=== PATIENT | female | born 1930 | race Caucasian/White ===

== ENCOUNTER 2017-02-28 18:16 | Inpatient (IN) | payer MEDICARE, BC ==
[~2017-02-28] VITALS: Ht 162.6 cm; Wt 48.3 kg
[2017-02-28] VITALS (126 sets, daily range): BP systolic 150–173; BP diastolic 1–74; PULSE 77–92; TEMP 97.2–99.6; O2SAT 92–100
[~2017-02-28 18:16] MED LIST: ASPIRIN 81M81 MG/TA2 PO; CENTRUM SILVER1 CTB PO; DYAZIDE 25 MG-51 CAP PO; FISH OIL1000 MG PO; LEVAQUIN 750MG750 M1 PO; MAXZIDE-25MG TA1 TAB PO; NORVASC2.5 MG PO; PREMARIN VAG42.5 GM VG; SYNTHROID 0.0.025 MG PO; TRIAMTERENE W/H1 CAP PO; hytrin PO
[2017-02-28 19:07] LABS: BASO % 0.4 % (0.0-2.0); EOS # 0.1 (0.0-0.7); EOS % 1.1 % (0-4.0); GRAN # 7.6 (1.4-6.5); GRAN % 78.1 % (42.2-75.2); LYMPH # 1.1 (1.2-3.4); LYMPH % 11.1 % (20.0-51.0); MEAN CELL VOLUME 92 fl (80.0-100.0); MEAN CORPUSCULAR HGB CONC 31 g/dl (33.0-37.0); MEAN PLATELET VOLUME 11.4 fl (7.4-10.4); MONO # 0.9 (0.1-0.6); PLATELET COUNT 311 K/mm3 (130-400); RED BLOOD COUNT 2.37 M/mm3 (4.10-5.30); REDCELL DISTRIBUTION WIDTH-CV 14.6 % (11.5-14.5); WHITE BLOOD COUNT 9.8 K/mm3 (4.8-10.8)
[2017-02-28 19:11] LABS: HEMATOCRIT 21.7 % (37.0-47.0); HEMOGLOBIN 6.7 g/dl (12.5-16.0); MEAN CORPUSCULAR HEMOGLOBIN 28 pg (27.0-31.0)
[2017-02-28 19:12] LABS: PROTHROMBIN TIME 10.8 SECONDS (9.7-12.8)
[2017-02-28 19:17] LABS: CALCIUM 9.4 mg/dL (8.4-10.2); CREATININE, serum 1.5 mg/dL (0.52-1.25); POTASSIUM 4.1 mmol/L (3.4-5.0)
[2017-03-01] VITALS (580 sets, daily range): BP systolic 122–199; BP diastolic 57–107; PULSE 65–105; TEMP 97.5–98.4; O2SAT 90–100
[2017-03-01 04:50] LABS: BASO # 0.1 (0.0-0.2); BASO % 0.7 % (0.0-2.0); EOS # 0.2 (0.0-0.7); EOS % 2.2 % (0-4.0); GRAN # 5.6 (1.4-6.5); GRAN % 70.2 % (42.2-75.2); LYMPH # 1.2 (1.2-3.4); LYMPH % 14.7 % (20.0-51.0); MEAN CORPUSCULAR HGB CONC 33 g/dl (33.0-37.0); MONO % 11.8 % (1.7-9.3); PLATELET COUNT 252 K/mm3 (130-400); RED BLOOD COUNT 3.73 M/mm3 (4.10-5.30); REDCELL DISTRIBUTION WIDTH-CV 14.3 % (11.5-14.5)
[2017-03-01 05:00] LABS: HEMATOCRIT 32.6 % (37.0-47.0); HEMOGLOBIN 10.9 g/dl (12.5-16.0); MEAN CELL VOLUME 87 fl (80.0-100.0); MEAN CORPUSCULAR HEMOGLOBIN 29 pg (27.0-31.0)
[2017-03-01 05:07] LABS: CALCIUM 8.6 mg/dL (8.4-10.2); CREATININE, serum 1.19 mg/dL (0.52-1.25); POTASSIUM 3.6 mmol/L (3.4-5.0)
[2017-03-01 23:10] LABS: HEMATOCRIT 31.8 % (37.0-47.0); HEMOGLOBIN 10.8 g/dl (12.5-16.0)
[2017-03-02 04:29] VITALS: BP 155/89; PULSE 92; TEMP 97.6
[2017-03-02 04:39] LABS: HEMATOCRIT 30.2 % (37.0-47.0); HEMOGLOBIN 10.3 g/dl (12.5-16.0)
[2017-03-02 09:55] VITALS: BP 166/68; PULSE 93; TEMP 98.4
[2017-03-02] MEDS ORDERED: REQUIP 0.5MG0.5 MG PO (10:17)
[2017-03-02] MEDS ORDERED: NORVASC 10MG10 MG PO (10:17)
[2017-03-02] MEDS ORDERED: PROTONIX 40MG T40 MG PO (10:17)
[2017-03-02] MEDS ORDERED: IRON325 MG PO (10:17)
[2017-03-02 12:42] VITALS: BP 149/54; PULSE 102; TEMP 98.3
[2017-03-02 14:10] LABS: HEMATOCRIT 31.6 % (37.0-47.0); HEMOGLOBIN 10.7 g/dl (12.5-16.0)
[2017-03-02 16:35] VITALS: BP 171/58; PULSE 91; TEMP 97.6
[2017-03-02 17:41] LABS: HEMATOCRIT 33.6 % (37.0-47.0); HEMOGLOBIN 11.3 g/dl (12.5-16.0)
== END 2017-03-02 18:00 | disposition home or self-care (01) | DRG 378 ==
LOC: COL.ER 18:16 → MEDICAL 19:25 → ICU 19:25 → MEDICAL 03-01 22:08
PROVIDERS: Emergency Medicine; Family Medicine; Internal Medicine; Internal Medicine Gastroenterology
PROC: 0DB78ZX Excision of Stomach, Pylorus, Via Natural or Artificial Opening Endoscopic, Diagnostic (ICD-10-PCS; principal; 2017-03-01 13:00)
DX: K92.0 Hematemesis (principal); D62 Acute posthemorrhagic anemia; E44.0 Moderate protein-calorie malnutrition; Z68.1 Body mass index [BMI] 19.9 or less, adult; K25.7 Chronic gastric ulcer without hemorrhage or perforation; Z66 Do not resuscitate; I10 Essential (primary) hypertension; Z87.891 Personal history of nicotine dependence; G25.81 Restless legs syndrome
CPT/HCPCS: 99223-AI; 99233-AI; 99239; C9113; J0360; J2250; J3010; J7030; P9016

== ENCOUNTER 2017-04-06 06:52 | Day surgery (SDC) | payer MEDICARE, BC ==
[~2017-04-06] VITALS: Ht 162.6 cm; Wt 46.2 kg
[~2017-04-06 06:52] MED LIST changes: +IRON325 MG PO; +NORVASC 10MG10 MG PO; +PROTONIX 40MG T40 MG PO; +REQUIP 0.5MG0.5 MG PO
[2017-04-06] MEDS ORDERED: NORVASC2.5 MG PO (07:27)
[2017-04-06] MEDS ORDERED: REQUIP 0.5MG0.5 MG PO (07:42)
[2017-04-06] MEDS ORDERED: PROTONIX 40MG T40 MG PO (07:43)
[2017-04-06 07:56] VITALS: BP 148/72; PULSE 74; TEMP 97.7
[2017-04-06 10:35] VITALS: BP 130/59; PULSE 70; TEMP 97.7
[2017-04-06 10:45] VITALS: BP 115/73; PULSE 75
[2017-04-06 11:00] VITALS: BP 131/65; PULSE 78
[2017-04-06 11:15] VITALS: BP 127/62
== END 2017-04-06 12:16 | disposition home or self-care (01) ==
LOC: SDCO 06:52
DX: K25.7 Chronic gastric ulcer without hemorrhage or perforation (principal); K31.89 Other diseases of stomach and duodenum; K31.819 Angiodysplasia of stomach and duodenum without bleeding; D50.9 Iron deficiency anemia, unspecified; I10 Essential (primary) hypertension; R63.4 Abnormal weight loss; R63.0 Anorexia; K57.30 Diverticulosis of large intestine without perforation or abscess without bleeding; R19.5 Other fecal abnormalities; K59.00 Constipation, unspecified
CPT/HCPCS: J2250; J3010; J7030

== ENCOUNTER 2019-06-13 17:04 | Emergency (ER) | payer MEDICARE, BC ==
[~2019-06-13] VITALS: Ht 160 cm; Wt 45.5 kg
[~2019-06-13 17:04] MED LIST changes: +NORVASC 5MG5 MG/TAB PO; +PREDNISONE10 MG PO; +PROAIR HFA0.09 MG/AC IH
[2019-06-13 17:12] VITALS: TEMP 97.7
[2019-06-13 17:47] LABS: BASO % 0.5 % (0.0-2.0); EOS # 0.3 (0.0-0.7); EOS % 3.1 % (0-4.0); GRAN # 6.2 (1.4-6.5); GRAN % 73.6 % (42.2-75.2); HEMATOCRIT 42.8 % (37.0-47.0); LYMPH # 1.1 (1.2-3.4); MEAN CELL VOLUME 93 fl (80.0-100.0); MEAN CORPUSCULAR HEMOGLOBIN 30 pg (27.0-31.0); MEAN CORPUSCULAR HGB CONC 33 g/dl (33.0-37.0); MEAN PLATELET VOLUME 10.5 fl (7.4-10.4); MONO # 0.8 (0.1-0.6); MONO % 9.4 % (1.7-9.3); PLATELET COUNT 328 K/mm3 (130-400); REDCELL DISTRIBUTION WIDTH-CV 12.8 % (11.5-14.5)
[2019-06-13 18:01] LABS: ALANINE AMINOTRANSFERASE < 6 U/L (9-52); ALBUMIN 4.1 gm/dL (3.5-5.0); ALKALINE PHOSPHATASE 75 U/L (50-136); ANION GAP 11 mmol/L (7-16); AST,SGOT 26 U/L (15-37); BILIRUBIN,TOTAL 0.4 mg/dL (0.0-1.0); BLOOD UREA NITROGEN 28 mg/dL (7-17); CALCIUM 9.8 mg/dL (8.4-10.2); CARBON DIOXIDE 29 mmol/L (22-30); CHLORIDE 99 mmol/L (98-107); CREATININE, serum 1.05 (0.52-1.25); GLUCOSE 90 mg/dL (74-106); POTASSIUM 4.6 mmol/L (3.4-5.0); SODIUM 139 mmol/L (137-145); TOTAL PROTEIN 7.3 gm/dL (6.4-8.2)
[2019-06-13 18:16] LABS: TROPONIN-I < 0.012 ng/mL (0.000-0.035)
[2019-06-13 18:21] LABS: INR 0.9 (0.8-3.0); PROTHROMBIN TIME 10.3 SECONDS (9.7-12.8)
[2019-06-13 19:10] LABS: MAGNESIUM 2.1 mg/dL (1.6-2.3)
[2019-06-13] MEDS ORDERED: ZITHROMAX500 M2 PO (19:55)
[2019-06-13 20:06] VITALS: BP 161/65; PULSE 84
== END 2019-06-13 18:56 | disposition home or self-care (01) ==
LOC: COL.ER 17:04
PROVIDERS: Emergency Medicine
DX: J18.1 Lobar pneumonia, unspecified organism (principal); I10 Essential (primary) hypertension; E03.9 Hypothyroidism, unspecified; Z90.710 Acquired absence of both cervix and uterus; Z87.891 Personal history of nicotine dependence; Z90.89 Acquired absence of other organs
CPT/HCPCS: J0696; J2060; J7030

== ENCOUNTER 2021-10-08 09:44 | Emergency (ER) | payer MEDICARE, BC ==
[~2021-10-08] VITALS: Ht 162.6 cm; Wt 43.2 kg
[~2021-10-08 09:44] MED LIST changes: +ZITHROMAX500 M2 PO
[2021-10-08 10:11] VITALS: TEMP 98.6
[2021-10-08 10:41] LABS: BASO % 0.6 % (0.0-2.0); EOS # 0.1 K/mm3 (0.0-0.7); EOS % 1.9 % (0-4.0); GRAN # 5.4 K/mm3 (1.4-6.5); HEMOGLOBIN 11.3 g/dl (12.5-16.0); LYMPH # 0.8 K/mm3 (1.2-3.4); LYMPH % 11.2 % (20.0-51.0); MEAN CELL VOLUME 84 fl (80.0-100.0); MEAN CORPUSCULAR HEMOGLOBIN 26 pg (27.0-31.0); MEAN CORPUSCULAR HGB CONC 31 g/dl (33.0-37.0); MEAN PLATELET VOLUME 10.6 fl (7.4-10.4); MONO # 0.6 K/mm3 (0.1-0.6); MONO % 9.2 % (1.7-9.3); PLATELET COUNT 315 K/mm3 (130-400); REDCELL DISTRIBUTION WIDTH-CV 14.2 % (11.5-14.5)
[2021-10-08 11:05] LABS: ALBUMIN 3.5 gm/dL (3.4-4.8); BILIRUBIN,TOTAL 0.5 mg/dL (0.2-1.2); CALCIUM 9.3 mg/dL (8.4-10.2); CREATININE, serum 1.29 mg/dL (0.57-1.11); POTASSIUM 4.3 mmol/L (3.5-4.5); TOTAL PROTEIN 6.4 gm/dL (6.2-8.1)
[2021-10-08] MEDS ORDERED: PREDNISONE20 MG PO (12:01)
[2021-10-08] MEDS ORDERED: ZITHROMAX Z PA250 MG PO (12:02)
[2021-10-08 12:20] VITALS: BP 187/72; PULSE 67
== END 2021-10-08 12:20 | disposition home or self-care (01) ==
LOC: COL.ER 09:44
PROVIDERS: Physician Assistant
DX: J44.1 Chronic obstructive pulmonary disease with (acute) exacerbation (principal); I10 Essential (primary) hypertension; E03.9 Hypothyroidism, unspecified; Z20.822 Contact with and (suspected) exposure to COVID-19; Z88.1 Allergy status to other antibiotic agents; Z88.2 Allergy status to sulfonamides; Z79.890 Hormone replacement therapy; Z79.899 Other long term (current) drug therapy
CPT/HCPCS: J7030

== ENCOUNTER 2022-03-18 11:43 | Inpatient (IN) | payer MEDICARE, BC ==
[~2022-03-18] VITALS: Ht 162.6 cm; Wt 47.3 kg
[~2022-03-18 11:43] MED LIST changes: +PREDNISONE20 MG PO; +ZITHROMAX Z PA250 MG PO
[2022-03-18 13:04] LABS: HEMOGLOBIN 11.9 g/dl (12.5-16.0); MEAN CELL VOLUME 89 fl (80.0-100.0); MEAN CORPUSCULAR HEMOGLOBIN 29 pg (27-31); MEAN CORPUSCULAR HGB CONC 32 g/dl (33.0-37.0); MEAN PLATELET VOLUME 11.3 fl (7.4-10.4); PLATELET COUNT 240 K/mm3 (130-400); RED BLOOD COUNT 4.12 M/mm3 (4.10-5.30); REDCELL DISTRIBUTION WIDTH-CV 15.4 % (11.5-14.5)
[2022-03-18 13:05] LABS: HEMATOCRIT 36.7 % (37.0-47.0)
[2022-03-18 13:16] LABS: ALBUMIN 2.9 gm/dL (3.4-4.8); BILIRUBIN,TOTAL 0.8 mg/dL (0.2-1.2); CALCIUM 9.7 mg/dL (8.4-10.2); CREATININE, serum 1.44 mg/dL (0.57-1.11); POTASSIUM 4.2 mmol/L (3.5-4.5); TOTAL PROTEIN 6.4 gm/dL (6.2-8.1)
[2022-03-18 13:41] LABS: ANISOCYTOSIS 1+; BAND 2 % (0-10); HYPOCHROMIA 1+; LYMPHOCYTE 2 % (20.0-51.0); NEUTROPHILS 89 % (42.0-75.2); PLATELET ESTIMATE NORMAL (NORMAL)
[2022-03-18 15:11] LABS: COLLECTION METHOD CLEAN CATCH
[2022-03-18 15:24] LABS: MUCOUS Present (NOT PRESENT); PH 5 (5-8); URINE APPEARANCE Hazy (CLEAR/HAZY); URINE BACTERIA Occasional /hpf (NONE SEEN); URINE BILIRUBIN Negative (NEGATIVE); URINE BLOOD 1+ (NEGATIVE); URINE COLOR Yellow (YELLOW); URINE GLUCOSE Negative (NEGATIVE); URINE KETONE Trace (NEGATIVE); URINE LEUKOCYTE ESTERASE 2+ (NEGATIVE); URINE NITRATE Negative (NEGATIVE); URINE PROTEIN(semi-quant) 1+ (NEGATIVE); URINE UROBILINOGEN Negative (NEGATIVE)
[2022-03-18 16:50] VITALS: BP 117/69; PULSE 79; TEMP 97.9
[2022-03-18] MEDS ORDERED: RT ADVAIR 228 DISKUS IH (17:23)
[2022-03-18] MEDS ORDERED: VITAMIN D 400400 IU PO (17:24)
[2022-03-18] MEDS ORDERED: VITAMIN B12 781 TAB PO (17:25)
[2022-03-18] MEDS ORDERED: OSCAL 500 TAB500 MG PO (17:25)
[2022-03-18] MEDS ORDERED: FERROUS SU325 MG/TAB PO (17:26)
--- NOTE | 2022-03-18 18:07 | NUR ---
Patient admitted from ER to room 346 from Er. Admission completed. rounded. Updated med rec to best of my ability, Patient not completely aware of her medication list. Patient also hard of hearing making communication difficult at times. Offered clear liquids, no interest at this time. Ivf to Day. Patient thankful for cares given. Will report off to night nurse
[2022-03-18 19:12] VITALS: BP 147/93; PULSE 95; TEMP 98
--- NOTE | 2022-03-18 19:38 | NUR ---
Pt. sitting upright in bed. A&O. IV flowing at 100ml/hr in right hand. Pt. complaining of pain of 8/10 to right middle side of chest. Respirations are unlabored. Pt. voiding tea colored urine. No further needs at this time. Call light in reach. Will continue to monitor.
[2022-03-18 23:21] VITALS: BP 116/51; PULSE 85; TEMP 97.8
[2022-03-19 03:52] VITALS: BP 117/48; PULSE 91; TEMP 98.4
--- NOTE | 2022-03-19 05:22 | NUR ---
PT. HAD A QUITE NIGHT SLEEPING, GETTING UP PERIODICALLY TO GO TO THE BATHROOM WITH STAND BY ASSISTANCE. ALL NEEDS WERE ATTENDED TO THROUGHOUT THE NIGHT.
[2022-03-19 06:57] LABS: HEMOGLOBIN 10.2 g/dl (12.5-16.0); MEAN CELL VOLUME 92 fl (80.0-100.0); MEAN CORPUSCULAR HEMOGLOBIN 28 pg (27-31); MEAN CORPUSCULAR HGB CONC 31 g/dl (33.0-37.0); MEAN PLATELET VOLUME 11.3 fl (7.4-10.4); PLATELET COUNT 270 K/mm3 (130-400); RED BLOOD COUNT 3.61 M/mm3 (4.10-5.30); REDCELL DISTRIBUTION WIDTH-CV 15.8 % (11.5-14.5)
[2022-03-19 07:00] LABS: CALCIUM 8.9 mg/dL (8.4-10.2); CREATININE, serum 1.03 mg/dL (0.57-1.11); POTASSIUM 4.5 mmol/L (3.5-4.5)
[2022-03-19 07:22] LABS: HEMATOCRIT 33.1 % (37.0-47.0)
[2022-03-19 08:00] VITALS: BP 137/61; PULSE 93; TEMP 98.1
[2022-03-19 08:50] LABS: ANISOCYTOSIS 1+; BAND 1 % (0-10); HYPOCHROMIA 3+; LYMPHOCYTE 1 % (20.0-51.0); NEUTROPHILS 93 % (42.0-75.2); PLATELET ESTIMATE NORMAL (NORMAL)
[2022-03-19 09:56] LABS: STREP SCREEN NEGATIVE
[2022-03-19 12:00] VITALS: BP 117/71; PULSE 85; TEMP 97.6
--- NOTE | 2022-03-19 13:11 | NUR ---
Sw met with the pt to complete intake. The pt reports they live at home with spouse and they have 3 adult children. The pt reports her Nk is her son, michael @ [phone] or [phone]. NO DPOA and not interested at this time. Pt reports independent on all ADLs and does not use any DME. PCP is Angelita enriquez and gets medications from [facility] and has not trouble obtaining medications. No other needs stated at this time. Sw to await further recommendations and follow up as needed. DC: Home
[2022-03-19 15:43] VITALS: BP 116/43; PULSE 96; TEMP 98.3
--- NOTE | 2022-03-19 20:00 | NUR ---
PT IN BED, WATCHING TV. DENIES PAIN. IS ALERT AND ORIENTED X4. IS KLAMATH. HER VOICE IS HOARSE, STREP SCREEN WAS NEGATIVE. HAS IVF TO RFA INFUSING WITHOUT PROBLEM. REPORTS FEELING BETTER. DENIES PAIN WITH URINATION. NO N/V OR DIARRHEA.
[2022-03-19 20:22] VITALS: BP 133/49; PULSE 97; TEMP 97.8
--- NOTE | 2022-03-19 22:22 | NUR ---
PT HAD MEDS FROM HOME SHE WANTED TO TAKE, A BABY ASPIRIN FOR DISCOMFORT. OFFERED TO GET TYLENOL, STATED "THATS TOO STRONG". PLACED HOME MEDS IN PHARMACY.
[2022-03-20] VITALS (7 sets, daily range): BP systolic 122–160; BP diastolic 44–87; PULSE 70–107; TEMP 97.7–98.7
--- NOTE | 2022-03-20 06:11 | NUR ---
PT HAD UNEVENTFUL NIGHT.
[2022-03-20 06:20] LABS: HEMOGLOBIN 10.3 g/dl (12.5-16.0); MEAN CELL VOLUME 92 fl (80.0-100.0); MEAN CORPUSCULAR HEMOGLOBIN 29 pg (27-31); MEAN CORPUSCULAR HGB CONC 31 g/dl (33.0-37.0); PLATELET COUNT 297 K/mm3 (130-400); RED BLOOD COUNT 3.58 M/mm3 (4.10-5.30); REDCELL DISTRIBUTION WIDTH-CV 15.9 % (11.5-14.5)
[2022-03-20 06:38] LABS: ALBUMIN 2.2 gm/dL (3.4-4.8); CALCIUM 8.9 mg/dL (8.4-10.2); CREATININE, serum 0.97 mg/dL (0.57-1.11); POTASSIUM 4.5 mmol/L (3.5-4.5)
[2022-03-20 06:45] LABS: BAND 29 % (0-10); LYMPHOCYTE 2 % (20.0-51.0); NEUTROPHILS 69 % (42.0-75.2)
[2022-03-20 06:54] LABS: PHOSPHOROUS 2.7 mg/dL (2.3-4.7)
--- NOTE | 2022-03-20 07:07 | NUR ---
awake and sitting up in bed, bedside shift report received from JUAN J Tucker
--- NOTE | 2022-03-20 07:44 | NUR ---
sitting up on side of bed eating breakfast
--- NOTE | 2022-03-20 08:00 | NUR ---
had breakfast and tolerated well, states she feels like her heart is pounding and fast after she gets up to the bathroom and then back to bed, full assessment completed, see interventions for further info, heart rate is tachy and she remains on telemetry, explained to her with being sick and also the medicine she is on will cause heart rate to be fast, encouraged to just rest in bed for a while, verbalizes understanding
--- NOTE | 2022-03-20 08:40 | NUR ---
tech in and echo being completed
--- NOTE | 2022-03-20 09:13 | NUR ---
Dr Ruelas and care team in to see patient, she c/o chest tightness while in room, orders received
--- NOTE | 2022-03-20 09:15 | NUR ---
lab in to draw blood
--- NOTE | 2022-03-20 09:59 | NUR ---
critial troponin level called to Jesus Medina
--- NOTE | 2022-03-20 10:06 | NUR ---
resting in bed with eyes closed when entered room, arouses easily, states chest tightness is getting better
--- NOTE | 2022-03-20 10:27 | NUR ---
up to bathroom and when back to bed said she ws having trouble breathing, O2 was off while up, back to bed and O2 back on, head of bed elevated and encouraged to rest, she does state "I don't think I'm gonna make it"
--- NOTE | 2022-03-20 10:36 | NUR ---
in to visit with patient
--- NOTE | 2022-03-20 10:53 | NUR ---
appears to be dozing, in bed with eyes closed, resp quiet and easy, rate 22
--- NOTE | 2022-03-20 10:58 | NUR ---
Madelin: Muslim Situation: Director Of Vocational Guidance stopped by on rounds Background: PT has been struggling, saying she is running out of everything. She seemed to perk up as we continued to talk. As we discussed life and her family, passenger booking clerk realized he knows her family and that brought a comfort to her. Assessment: PT conveyed that she isn't running out of peace. As we continued to talk she was content and able to show hope. Recommendation: Director Of Vocational Guidance will follow up as needed
--- NOTE | 2022-03-20 11:21 | NUR ---
director of social work in to visit with patient
--- NOTE | 2022-03-20 11:26 | NUR ---
states she is feeling better now, has been sleeping and this has helped
--- NOTE | 2022-03-20 11:30 | NUR ---
Dr Booker in to see patient
--- NOTE | 2022-03-20 11:49 | NUR ---
sitting up in bed ready for lunch, son and [id number] in to visit
--- NOTE | 2022-03-20 12:30 | NUR ---
given toprol and asa as ordered, informed her of use of these meds and s/s of toprol
--- NOTE | 2022-03-20 13:13 | NUR ---
Wheel Cutter met with patient to discuss PT recommendations for possible post acute rehab. Patient is interested in this and advised she would like referrals sent to [facility], not to [facility]. SW faxed referrals to both facilities. SW followed up with patient once her son, Kam was at bedside. SW reviewed the above information and patient expressed that she was also interested in Home Health as an option. SW provided Medicare.gov list of Home Health agencies that serve [place]. Discharge Plan: Home Health vs SNF
--- NOTE | 2022-03-20 13:29 | NUR ---
speech therapy in to assess patient
--- NOTE | 2022-03-20 13:45 | NUR ---
physical therapy in and worked with patient, assisted up to bathroom and had bowel movement, then back to bed
--- NOTE | 2022-03-20 13:57 | NUR ---
Sammy at [facility] advised they can accept referral once she gets her three midnights.
--- NOTE | 2022-03-20 14:49 | NUR ---
Jesusita farrar [facility] advised they can clinically accept patient if they have bed availability at the time of discharge.
--- NOTE | 2022-03-20 16:00 | NUR ---
JULIET Medina notified of elevated troponin
--- NOTE | 2022-03-20 18:48 | NUR ---
bedside shift report given to JUAN J Bernard
--- NOTE | 2022-03-20 23:22 | NUR ---
Hospitalist was notified of critical troponin level. Hospitalist stated that repeart lab order will be placed in the morning to continue moniotoring.
--- NOTE | 2022-03-21 03:14 | NUR ---
After pt ambulated to the restroom, she was visibily SOA after exertion. Pt stated to this nurse that she does not "want to do this anymore" as she motioned to her IV. Pt stated that she does not want to do lab draws anymore and feels that "this is what will take me out." Pt is currently a DNR. This nurse informed the patient that this will be relayed to dayshift nurses and staff and that Poell with involved as well. Pt expressed gratitude and thanked this nurse and other staff for being understanding and for taking good care of her. All other needs met at this time, call light within reach.
[2022-03-21 05:10] VITALS: BP 175/66; PULSE 86; TEMP 97.8
[2022-03-21 06:50] LABS: HEMATOCRIT 37.8 % (37.0-47.0); HEMOGLOBIN 11.7 g/dl (12.5-16.0); MEAN CELL VOLUME 92 fl (80.0-100.0); MEAN CORPUSCULAR HEMOGLOBIN 28 pg (27-31); MEAN CORPUSCULAR HGB CONC 31 g/dl (33.0-37.0); PLATELET COUNT 385 K/mm3 (130-400); RED BLOOD COUNT 4.12 M/mm3 (4.10-5.30); REDCELL DISTRIBUTION WIDTH-CV 15.8 % (11.5-14.5)
[2022-03-21 06:57] LABS: ALBUMIN 2.6 gm/dL (3.4-4.8); CALCIUM 9.1 mg/dL (8.4-10.2); CREATININE, serum 1.16 mg/dL (0.57-1.11); PHOSPHOROUS 2.6 mg/dL (2.3-4.7); POTASSIUM 3.7 mmol/L (3.5-4.5)
[2022-03-21 07:15] LABS: TROPONIN-I 0.362 ng/mL (0.00-0.033)
[2022-03-21 07:30] LABS: BAND 3 % (0-10); LYMPHOCYTE 8 % (20.0-51.0); NEUTROPHILS 79 % (42.0-75.2)
[2022-03-21 07:31] LABS: ANISOCYTOSIS 1+; HYPOCHROMIA 2+; PLATELET ESTIMATE NORMAL (NORMAL)
[2022-03-21 08:12] VITALS: BP 150/49; BP 165/62; PULSE 85; TEMP 98.1
--- NOTE | 2022-03-21 10:00 | NUR ---
Pt tired having tests done. CT was ordered, but pt is refusing to have it done. Reports that she does not want any more tests and does not want to be poked any more. Pts throat is hoarse, but pt states that her throat does not hurt at all. Pt does get short of breath when she gets to talking a lot. Mostly pt gets worked up explaining how she does not want more tests done. Pt reports that she does have a couple sons that are going to be coming soon. Pt is steady on her feet in the room, but did ask her to use her call light when she needs to get up.
[2022-03-21 11:27] VITALS: BP 185/88; PULSE 100
--- NOTE | 2022-03-21 13:00 | NUR ---
Pt in better spirits since deciding not to do any more testing. Pt is happy to continue medications and use the IV she has in place, but does not want any more tests or needle sticks. Pt not having any increase in pain, but does state that she can feel some chest pain/tightness after she has been to the bathroom. No needs verbalized
[2022-03-21 15:13] VITALS: BP 155/72; PULSE 82; TEMP 98.1
--- NOTE | 2022-03-21 15:53 | NUR ---
Met with patient and her sons at bedside, also spoke with [id number], Mark Anthony, on the phone. Patient states she does not want any procedures and would like to slowly step back and go home. Patient's son's have many questions about hospice or home health care. The patient prefers to go home and son's feel that is still appropriate. Discussed home health as patient may not qualify for hospice yet. She is in agreeance with home health. I discussed with the family that since the patient is refusing surgery to help her heart, she will continue to decline and that if they feel hospice is appropriate in the future, they would just need to call the agency of their choice or work with the patient's PCP to get that set up. Patient is hoping to be discharged tomorrow. Notified SW of probable need for home oxygen and that family is looking at home health agencies. Family has my contact information as well.
--- NOTE | 2022-03-21 16:04 | NUR ---
Public Employment Mediator collaborated with Tania, Palliative RN who met with patient and her family. Tania advised that patient would like to return home with Home Health services. Daughter in law, Mark Anthony (ph#[phone]) requested a call. LISS contacted Mark Anthony who advised they have selected [facility]. Also if patient requires home oxygen, they would like to go with [place] [facility]. LISS contacted Kaya at [facility] and faxed referral. LISS updated Jesusita at [facility] and Sammy at [facility] about patient DC preferences. Discharge Plan: Home with [facility]
--- NOTE | 2022-03-21 17:40 | NUR ---
Pt has had some dinner to eat. She does not have any new complaints. She has had a visitor with her for a little while now. Evening medications taken without difficulty. Pt has become tachy, but is refusing to have an EKG done. Pt pulse ranging from 120s-160. Pt stated that she does not notice her heart beating fast at this time. Pt does have friends in the room, but pt is insistent that she does not want any tests done. Asked for the pt to notify nursing if she feels different or has any chest pains. She stated she would. Notified Dr Ruelas of this
[2022-03-21 19:31] VITALS: BP 114/71; PULSE 101; PULSE 43; TEMP 97.4
--- NOTE | 2022-03-21 19:41 | NUR ---
TX GIVEN VIA MOUTHPIECE, TOLERATED WELL. PERFOROMIST/PULMICORT FIRST AND FOLLOWED BY PALOMO. PT STATED SHE HAS NOT BEEN SLEEPING WELL AND REQUESTED I NOT WAKE HER IF SLEEPING WHEN 0200 [place] IS DUE.
[2022-03-22 00:23] VITALS: BP 134/66; PULSE 77; TEMP 97.6
--- NOTE | 2022-03-22 02:21 | NUR ---
Pt has had an uneventful evening thus far, currently resting quietly in bed. Pt has taken oral medications without difficulty. Per report the pt had been denying invasive procedures during dayshift; it was advised that this nurse ask the pt if she is agreeable to morning lab draws. Pt stated to this nurse that she does no want lab drawn this morning. Message will be relayed to supervisor taping when morning rounds are being performed. Assessment completed without difficulty. All other needs met at this time. Call light within reach.
[2022-03-22 03:33] VITALS: BP 113/59; PULSE 58; TEMP 97.5
--- NOTE | 2022-03-22 06:10 | NUR ---
Pt refused morning lab draw. Pt expressed to this nurse that she does not wish to go through invasive procedures anymore.
[2022-03-22 08:36] VITALS: BP 131/83; PULSE 68; TEMP 97.6
[2022-03-22] MEDS ORDERED: MEDROL 4MG DOSPA4 MG PO (10:34)
[2022-03-22] MEDS ORDERED: AMOXICILLIN/CLA1 TA1 PO (10:34)
[2022-03-22] MEDS ORDERED: ASPIRIN E.C. 8181 MG PO (10:35)
[2022-03-22] MEDS ORDERED: ZESTRIL 5MG5 MG PO (10:35)
[2022-03-22] MEDS ORDERED: LOPRESSOR 550 MG/TAB PO (10:35)
[2022-03-22] MEDS ORDERED: PROAIR HFA0.09 MG/AC IH (10:36)
[2022-03-22] MEDS ORDERED: LASIX 20MG TABL20 MG PO (10:37)
[2022-03-22] MEDS ORDERED: OXYGEN (10:40)
--- NOTE | 2022-03-22 10:44 | NUR ---
Attended rounds. Patient requesting to go home and states she is ready to and wants no further aggressive/invasive treatments. Confirmed plan for home health and home oxygen. SW notified family. Discussed with patient that if she doesn't do well at home and friends/family are unable to care for her, she may need to go to a facility. Family discussing hospice after discussiong yesterday and patient verbalized understanding.
[2022-03-22 12:14] VITALS: BP 133/62; PULSE 66; TEMP 98.5
--- NOTE | 2022-03-22 14:30 | NUR ---
Picc Nurse attended clinical rounds with the team and patient expressed that she is ready to be "done" and does not want to return to the hospital. Patient would like to return home today with [facility] and see how she does. Patient will require home oxgyen set up at discharge, which will be today. LISS faxed referral and order for oxygen to [place] [facility]. LISS collaborated with patient's daughter in law, Mark Anthony who will waste picker oxygen supplies prior to picking up patient this afternoon. LISS contacted Kaya at [facility] and faxed discharge orders. Kaya advised she has been in contact with Mark Anthony and the first visit is scheduled. LISS met with patient to present and review IM form. Patient verbalized understanding and provided signature. LISS placed form in chart and provided copy to patient. LISS contacted Irene Picc Nurse at patient's PCP office and gave discharge update along with update on discussions about hospice. Discharge Plan: Home with [facility] and oxygen
--- NOTE | 2022-03-22 15:26 | NUR ---
Reviewed discharge instructions with pt and her sons and daughter in law. Mostly discussed with daughter in law. Pt not wanting to get lab work prior to her primary care appointment. Stated it is something she can decide later and discuss with Lillian, PCP. INT removed from right wrist. Family did pickle water pump operator home O2.
--- NOTE | 2022-03-22 15:45 | NUR ---
Pt escorted out
== END 2022-03-22 15:54 | disposition home health service (06) | DRG 871 ==
LOC: COL.ER 11:43 → SURG 15:44
PROVIDERS: Internal Medicine; Physician Assistant; ADMIT Internal Medicine
DX: A41.9 Sepsis, unspecified organism (principal); J96.01 Acute respiratory failure with hypoxia; J18.9 Pneumonia, unspecified organism; I21.A1 Myocardial infarction type 2; I50.31 Acute diastolic (congestive) heart failure; N17.9 Acute kidney failure, unspecified; N39.0 Urinary tract infection, site not specified; J44.0 Chronic obstructive pulmonary disease with (acute) lower respiratory infection; E44.0 Moderate protein-calorie malnutrition; I47.1 Supraventricular tachycardia; Z68.1 Body mass index [BMI] 19.9 or less, adult; Z66 Do not resuscitate; E83.52 Hypercalcemia; E78.5 Hyperlipidemia, unspecified; I35.0 Nonrheumatic aortic (valve) stenosis; E03.9 Hypothyroidism, unspecified; K59.00 Constipation, unspecified; G25.81 Restless legs syndrome; B95.2 Enterococcus as the cause of diseases classified elsewhere; I48.91 Unspecified atrial fibrillation; I11.0 Hypertensive heart disease with heart failure; Z20.822 Contact with and (suspected) exposure to COVID-19; Z79.82 Long term (current) use of aspirin; Z87.891 Personal history of nicotine dependence; Z85.89 Personal history of malignant neoplasm of other organs and systems; Z23 Encounter for immunization
CPT/HCPCS: 99223-AI; 99232-AI; 99233-AI; 99239; J0456; J0696; J1644; J1940; J2543; J7030; J7050; J7512